=== PATIENT | female | born 1940 | race Caucasian/White ===

== ENCOUNTER 2016-06-19 01:24 | Emergency (ER) | payer MEDICARE, MEDICAID ==
[~2016-06-19] VITALS: Ht 149.9 cm; Wt 55.9 kg
[~2016-06-19 01:24] MED LIST: ACTOS 15MG TAB15 MG PO; ACTOS15 MG PO; ACTOS30 MG PO; ACYCLOVIR400 MG PO; ADVAIR 250/28 DISKU1 IH; ADVAIR 500/28 DISKUS IH; ADVAIR IH; ALBUTEROL0.83 MG/ML IH; ANTIVERT 25MG25 MG PO; ASPIRIN 81M81 MG/TA2 PO; ASPIRIN E.C. 8181 MG PO; ATIVAN 0.50.5 MG/TAB PO; ATROVENT I0.2 MG/1 M IH; BUDESONIDE0.25 MG/2 IH; CARDIZEM CD 18180 MG PO; CELEBREX 1100 MG/CAP PO; CLEOCIN HC150 MG/CAP PO; CRESTOR10 MG PO; CROMOLYN; CYMBALTA 20MG20 MG PO; DUONEB 3 MG/3 ML3 ML IH; FLEXERIL 1010 MG/TAB PO; FLEXERIL5 MG; FLONASE NASAL S16 GM; FORTAMET500 MG PO; GLUCOPHAGE500 MG/TAB PO; HYDROCODONE/APAP; IPRATROPIUM BROM3 M1 IH; LANTUS SQ; LANTUS100 U/ML SQ; LEVAQUIN 750MG750 MG PO; LEVOTHYROXINE0.15 MG PO; LEVOTHYROXINE0.2 MG PO; LIDODERM PATCH TP; LISINOPRIL5 MG PO; LOPRESSOR 225 MG/TAB PO; MEDROL 4MG DOSPA4 MG PO; METFORMIN HCL1000 MG PO; METHOCARBAMOL500 MG PO; NEURONTIN100 MG/CAP PO; NEXIUM40 MG PO; NITROSTAT0.4 MG/TAB SL; NORCO 325 MG-51 TAB PO; NORCO 325 MG-7.1 TAB PO; PERCOCET 325 MG1 TA2 PO; PERCOCET 325 MG1 TA3 PO; PERCR 7.5 PO; PERFOROMIS20 MCG/2 M IH; PHENERGAN 25 TA25 MG PO; PLAVIX 75MG TAB75 MG PO; PRAVACHOL 40MG40 MG PO; PRAVASTATIN20 MG PO; PREDNISONE10 MG PO; PREDNISONE20 MG PO; PRILOSEC 20MG20 MG PO; PROAIR IH; PROVENTIL0.09 MG/A1 IH; PROVENTIL0.09 MG/Ac IH; PULMICORT0.25 MG/2 IH; ROXICODONE15 MG PO; RT SPIRIVA18 MCG IH; SAVELLA12.5 MG PO; SAVELLA25 MG PO; SINGULAIR 110 MG/TAB PO; SINGULAIR10 MG PO; SYNTHROID 0.10.15 MG PO; SYNTHROID0.1 MG/TAB PO; SYNTHROID0.175 MG PO; THEOCHRON PO; ULTRAM 50MG TAB50 MG PO; VENTOLIN0.09 MG IH; XARELTO10 MG PO; ZITHROMAX 250M250 MG PO; ZITHROMAX Z PA250 MG PO; ZOFRAN ODT4 MG PO; ZOLOFT 50MG50 MG PO; ZOLOFT100 MG PO
[2016-06-19 01:26] VITALS: TEMP 98.7
[2016-06-19] MEDS ORDERED: PAXIL 20MG20 MG PO (01:32)
[2016-06-19 02:09] LABS: MEAN CELL VOLUME 76 fl (80.0-100.0); MEAN CORPUSCULAR HGB CONC 32 g/dl (33.0-37.0); MEAN PLATELET VOLUME 10.3 fl (7.4-10.4); PLATELET COUNT 240 K/mm3 (130-400); RED BLOOD COUNT 4.68 M/mm3 (4.10-5.30); REDCELL DISTRIBUTION WIDTH-CV 15.4 % (11.5-14.5); WHITE BLOOD COUNT 9.8 K/mm3 (4.8-10.8)
[2016-06-19 02:13] LABS: ADD PATHOLOGY DIFF REVIEW NO; HEMATOCRIT 35.7 % (37.0-47.0); HEMOGLOBIN 11.5 g/dl (12.5-16.0); MEAN CORPUSCULAR HEMOGLOBIN 25 pg (27.0-31.0)
[2016-06-19 02:21] LABS: ADJUSTED CALCIUM 9.6 mg/dL (8.4-10.2); ALBUMIN 3.9 gm/dL (3.5-5.0); BILIRUBIN,TOTAL 0.6 mg/dL (0.0-1.0); CALCIUM 9.5 mg/dL (8.4-10.2); CREATININE, serum 0.67 mg/dL (0.52-1.25); TOTAL PROTEIN 7.1 gm/dL (6.4-8.2)
[2016-06-19 02:31] LABS: BAND 13 % (0-10); EOSINOPHIL 2 % (0-4); METAMYELOCYTE 2 % (0-0); NEUTROPHILS 42 % (42.0-75.2); PLATELET ESTIMATE NORMAL (NORMAL); TOTAL CELLS COUNTED 100
[2016-06-19] MEDS ORDERED: VOLTAREN 75 DR75 MG PO (03:06)
[2016-06-19] MEDS ORDERED: FLEXERIL 1010 MG/TAB PO (03:06)
[2016-06-19 03:22] VITALS: BP 147/79; PULSE 58
== END 2016-06-19 03:23 | disposition home or self-care (01) ==
LOC: COL.ER 01:24
PROVIDERS: Emergency Medicine
DX: M62.838 Other muscle spasm (principal); M54.2 Cervicalgia; E11.9 Type 2 diabetes mellitus without complications; I10 Essential (primary) hypertension; Z87.891 Personal history of nicotine dependence; J44.9 Chronic obstructive pulmonary disease, unspecified
CPT/HCPCS: J1885; J2360; J2930; J3010; J3360; J7040

== ENCOUNTER 2016-09-22 08:22 | Emergency (ER) | payer MEDICARE ==
[~2016-09-22] VITALS: Ht 149.9 cm; Wt 59.1 kg
[~2016-09-22 08:22] MED LIST changes: +PAXIL 20MG20 MG PO; +VOLTAREN 75 DR75 MG PO
[2016-09-22 08:28] VITALS: BP 127/55; PULSE 88; TEMP 98.4
[2016-09-22] MEDS ORDERED: ZITHROMAX Z PA250 MG PO (09:29)
[2016-09-22] MEDS ORDERED: PREDNISONE20 MG PO (09:29)
== END 2016-09-22 09:50 | disposition home or self-care (01) ==
LOC: COL.ER 08:22
DX: J44.1 Chronic obstructive pulmonary disease with (acute) exacerbation (principal); R06.02 Shortness of breath; I25.10 Atherosclerotic heart disease of native coronary artery without angina pectoris; Z95.5 Presence of coronary angioplasty implant and graft; E11.9 Type 2 diabetes mellitus without complications; Z79.84 Long term (current) use of oral hypoglycemic drugs; Z87.891 Personal history of nicotine dependence
CPT/HCPCS: J7512

== ENCOUNTER → 2017-03-10 | Outpatient (CLI) | payer MEDICARE | LOC: COL.RAD 11:08 | DX: S00.83XA Contusion of other part of head, initial encounter (principal); J32.0 Chronic maxillary sinusitis; J32.2 Chronic ethmoidal sinusitis; J32.3 Chronic sphenoidal sinusitis ==

== ENCOUNTER 2017-05-26 15:39 | Emergency (ER) | payer MEDICARE ==
[~2017-05-26] VITALS: Ht 149.9 cm; Wt 55.5 kg
[2017-05-26 15:48] VITALS: BP 144/82; TEMP 98.7
[2017-05-26 16:37] LABS: HEMOGLOBIN 11.8 g/dl (12.5-16.0); MEAN CELL VOLUME 76 fl (80.0-100.0); MEAN CORPUSCULAR HEMOGLOBIN 25 pg (27.0-31.0); MEAN CORPUSCULAR HGB CONC 33 g/dl (33.0-37.0); MEAN PLATELET VOLUME 10.6 fl (7.4-10.4); PLATELET COUNT 225 K/mm3 (130-400); RED BLOOD COUNT 4.77 M/mm3 (4.10-5.30); REDCELL DISTRIBUTION WIDTH-CV 14.5 % (11.5-14.5)
[2017-05-26 16:46] LABS: BILIRUBIN,TOTAL 0.9 mg/dL (0.0-1.0); CALCIUM 9.8 mg/dL (8.4-10.2); CREATININE, serum 0.73 mg/dL (0.52-1.25); POTASSIUM 4.2 mmol/L (3.4-5.0); TOTAL PROTEIN 6.8 gm/dL (6.4-8.2)
[2017-05-26] MEDS ORDERED: WELLBUTRIN XL300 M1 PO (17:00)
[2017-05-26] MEDS ORDERED: VASCEPA1 GM PO (17:02)
[2017-05-26 17:24] LABS: INFLUENZA A NEGATIVE; INFLUENZA B NEGATIVE
[2017-05-26 17:29] LABS: BAND 4 % (0-10); EOSINOPHIL 1 % (0-4); LYMPHOCYTE 20 % (20.0-51.0); METAMYELOCYTE 4 % (0-0); MYELOCYTE 2 % (0-0); NEUTROPHILS 64 % (42.0-75.2)
[2017-05-26 17:30] LABS: PLATELET ESTIMATE NORMAL (NORMAL)
[2017-05-26 17:35] LABS: BURR CELLS 1+
[2017-05-26] MEDS ORDERED: PREDNISONE20 MG PO (17:35)
[2017-05-26] MEDS ORDERED: LEVAQUIN 5500 MG/TA1 PO (17:35)
[2017-05-26 18:28] VITALS: PULSE 97
[2017-05-30 08:54] LABS: PATHOLOGY DIFF REVIEW OK
== END 2017-05-26 18:30 | disposition home or self-care (01) ==
LOC: COL.ER 15:39
PROVIDERS: Family Medicine
DX: J44.1 Chronic obstructive pulmonary disease with (acute) exacerbation (principal); J18.1 Lobar pneumonia, unspecified organism; Z87.891 Personal history of nicotine dependence; Z79.82 Long term (current) use of aspirin; Z79.84 Long term (current) use of oral hypoglycemic drugs
CPT/HCPCS: J1956; J2930; J7030

== ENCOUNTER 2017-10-24 06:49 | Outpatient (CLI) | payer MEDICARE ==
[~2017-10-24] VITALS: Ht 149.9 cm; Wt 58.6 kg
[~2017-10-24 06:49] MED LIST changes: +LEVAQUIN 5500 MG/TA1 PO; -SYNTHROID0.1 MG/TAB PO; +SYNTHROID0.125 MG/T PO; +VASCEPA1 GM PO; +WELLBUTRIN XL300 M1 PO
[2017-10-24] MEDS ORDERED: D3-5050000 IU PO (07:39)
[2017-10-24] MEDS ORDERED: MOBIC 7.5MG7.5 MG PO (07:40)
[2017-10-24] MEDS ORDERED: NEURONTIN800 MG/TAB PO (07:40)
[2017-10-24] MEDS ORDERED: VASCEPA1 GM PO ×2 (07:41)
[2017-10-24 07:44] VITALS: BP 149/75; PULSE 71; TEMP 97.9
[2017-10-24 09:45] VITALS: BP 135/70; PULSE 76
[2017-10-24 10:00] VITALS: BP 143/56; PULSE 64
[2017-10-24 10:08] LABS: HEMATOCRIT 34.3 % (37.0-47.0); MEAN CELL VOLUME 79 fl (80.0-100.0); MEAN CORPUSCULAR HEMOGLOBIN 25 pg (27.0-31.0); MEAN CORPUSCULAR HGB CONC 32 g/dl (33.0-37.0); MEAN PLATELET VOLUME 10.5 fl (7.4-10.4); PLATELET COUNT 138 K/mm3 (130-400); RED BLOOD COUNT 4.36 M/mm3 (4.10-5.30); REDCELL DISTRIBUTION WIDTH-CV 14.8 % (11.5-14.5)
[2017-10-24 10:22] VITALS: BP 116/71; PULSE 67
[2017-10-24 10:48] VITALS: BP 115/53; PULSE 69
[2017-10-24 11:55] LABS: BAND 16 % (0-10); EOSINOPHIL 1 % (0-4); LYMPHOCYTE 43 % (20.0-51.0); METAMYELOCYTE 3 % (0-0); MICROCYTOSIS 1+; MYELOCYTE 1 % (0-0); NEUTROPHILS 32 % (42.0-75.2); PLATELET ESTIMATE NORMAL (NORMAL)
== END 2017-10-24 10:36 | disposition home or self-care (01) ==
LOC: SDCO 06:49
PROVIDERS: Pathology Anatomic Pathology & Clinical Pathology
DX: D72.829 Elevated white blood cell count, unspecified (principal); D69.6 Thrombocytopenia, unspecified; I25.10 Atherosclerotic heart disease of native coronary artery without angina pectoris; I25.2 Old myocardial infarction; J44.9 Chronic obstructive pulmonary disease, unspecified; G47.33 Obstructive sleep apnea (adult) (pediatric); M19.90 Unspecified osteoarthritis, unspecified site; F32.9 Major depressive disorder, single episode, unspecified; F41.9 Anxiety disorder, unspecified; G89.29 Other chronic pain; M54.5 Low back pain; E03.9 Hypothyroidism, unspecified; E11.9 Type 2 diabetes mellitus without complications; Z90.710 Acquired absence of both cervix and uterus; Z85.41 Personal history of malignant neoplasm of cervix uteri
CPT/HCPCS: J2250; J2704; J3010; J7030

== ENCOUNTER 2018-01-15 06:54 | Outpatient (CLI) | payer MEDICARE, MEDICAID ==
[~2018-01-15] VITALS: Ht 149.9 cm; Wt 55.5 kg
[~2018-01-15 06:54] MED LIST changes: +D3-5050000 IU PO; +MOBIC 7.5MG7.5 MG PO; +NEURONTIN800 MG/TAB PO
[2018-01-15] MEDS ORDERED: JANUVIA 100MG100 MG PO (08:37)
[2018-01-15 08:51] VITALS: BP 136/49; PULSE 69; TEMP 98.7
[2018-01-15 09:40] LABS: HEMOGLOBIN 10.8 g/dl (12.5-16.0); MEAN CELL VOLUME 79 fl (80.0-100.0); MEAN CORPUSCULAR HEMOGLOBIN 25 pg (27.0-31.0); MEAN CORPUSCULAR HGB CONC 32 g/dl (33.0-37.0); MEAN PLATELET VOLUME 12.2 fl (7.4-10.4); PLATELET COUNT 105 K/mm3 (130-400); RED BLOOD COUNT 4.27 M/mm3 (4.10-5.30); REDCELL DISTRIBUTION WIDTH-CV 15.6 % (11.5-14.5)
[2018-01-15 09:53] LABS: HEMATOCRIT 33.5 % (37.0-47.0)
[2018-01-15 10:00] VITALS: BP 109/49; PULSE 78
[2018-01-15 10:15] VITALS: BP 116/48; PULSE 74
[2018-01-15 10:45] VITALS: BP 108/59; PULSE 78; TEMP 98.4
[2018-01-15 10:53] VITALS: BP 95/86; PULSE 83
[2018-01-15 11:36] LABS: BAND 30 % (0-10); EOSINOPHIL 1 % (0-4); METAMYELOCYTE 3 % (0-0); MYELOCYTE 2 % (0-0); NEUTROPHILS 33 % (42.0-75.2); NUCLEATED RED BLOOD CELL 1 (0-6)
[2018-01-15 11:37] LABS: ANISOCYTOSIS 1+; HYPOCHROMIA 1+; MICROCYTOSIS 1+; PLATELET ESTIMATE DECREASED (NORMAL)
[2018-01-15 13:38] LABS: LYMPHOCYTE 24 % (20.0-51.0)
== END 2018-01-15 11:24 | disposition home or self-care (01) ==
LOC: EUO 06:54 → SDCO 09:00 → EUO 11:24
PROVIDERS: Pathology Anatomic Pathology & Clinical Pathology
DX: D72.829 Elevated white blood cell count, unspecified (principal); D69.6 Thrombocytopenia, unspecified; Z85.41 Personal history of malignant neoplasm of cervix uteri; Z92.21 Personal history of antineoplastic chemotherapy
CPT/HCPCS: J2704; J3010; J7030

== ENCOUNTER → 2018-02-02 | Outpatient (CLI) | payer MEDICARE, MEDICAID ==
[~2018-02-02] MED LIST changes: +JANUVIA 100MG100 MG PO
== END ==
LOC: MC.RAD 13:25
DX: Z12.31 Encounter for screening mammogram for malignant neoplasm of breast (principal)

== ENCOUNTER → 2018-02-09 | Outpatient (CLI) | payer MEDICARE, MEDICAID | LOC: MC.RAD 08:21 | DX: N63.20 Unspecified lump in the left breast, unspecified quadrant (principal) | CPT/HCPCS: G0279 ==

== ENCOUNTER 2018-02-13 08:07 | Day surgery (SDC) | payer MEDICARE, MEDICAID ==
[~2018-02-13] VITALS: Ht 149.9 cm; Wt 53.9 kg
[2018-02-13] MEDS ORDERED: OSCAL 500 TAB500 MG PO (08:40)
[2018-02-13] MEDS ORDERED: HYDROXYURE500 MG/CAP PO (08:40)
[2018-02-13] MEDS ORDERED: VITAMIN D PO (08:40)
[2018-02-13 08:41] VITALS: BP 149/62; PULSE 78; TEMP 98.6
[2018-02-13 11:18] VITALS: BP 112/44; PULSE 67; TEMP 96.9
[2018-02-13 11:30] VITALS: BP 104/50; PULSE 70
[2018-02-13 11:45] VITALS: BP 119/49; PULSE 62
== END 2018-02-13 12:10 | disposition home or self-care (01) ==
LOC: SDCO 08:07
DX: C92.00 Acute myeloblastic leukemia, not having achieved remission (principal); Z79.84 Long term (current) use of oral hypoglycemic drugs; E11.9 Type 2 diabetes mellitus without complications; G47.33 Obstructive sleep apnea (adult) (pediatric); J44.9 Chronic obstructive pulmonary disease, unspecified; I25.10 Atherosclerotic heart disease of native coronary artery without angina pectoris; I25.2 Old myocardial infarction; F32.9 Major depressive disorder, single episode, unspecified; F41.9 Anxiety disorder, unspecified; G89.29 Other chronic pain; E03.9 Hypothyroidism, unspecified; D69.6 Thrombocytopenia, unspecified; Z95.5 Presence of coronary angioplasty implant and graft; Z88.2 Allergy status to sulfonamides; Z88.8 Allergy status to other drugs, medicaments and biological substances; Z96.651 Presence of right artificial knee joint; Z85.42 Personal history of malignant neoplasm of other parts of uterus; Z85.41 Personal history of malignant neoplasm of cervix uteri; Z82.3 Family history of stroke; Z80.3 Family history of malignant neoplasm of breast; Z80.51 Family history of malignant neoplasm of kidney; Z80.8 Family history of malignant neoplasm of other organs or systems; Z82.49 Family history of ischemic heart disease and other diseases of the circulatory system
CPT/HCPCS: C1788; J0690; J1100; J1644; J1885; J2250; J2405; J3010; J7120

== ENCOUNTER → 2018-07-30 | Outpatient (CLI) | payer MEDICARE ==
[~2018-07-30] MED LIST changes: +BREO IH; +HYDROXYURE500 MG/CAP PO; +IMODIUM 2MG CAPS2 MG PO; +MASON NATURAL2000 IU PO; +OSCAL 500 TAB500 MG PO; +VITAMIN D PO
== END ==
LOC: ZCOL.LAB 16:40
DX: H66.92 Otitis media, unspecified, left ear (principal)

== ENCOUNTER → 2018-09-19 | Outpatient (CLI) | payer MEDICARE | LOC: COL.LAB 14:52 | DX: R06.02 Shortness of breath (principal); R60.0 Localized edema ==

== ENCOUNTER → 2018-11-21 | Outpatient (CLI) | payer MEDICARE | LOC: MHCPAIN 14:47 | DX: G89.29 Other chronic pain (principal); M47.814 Spondylosis without myelopathy or radiculopathy, thoracic region; M79.18 Myalgia, other site | CPT/HCPCS: G0463 ==

== ENCOUNTER 2019-03-01 20:25 | Emergency (ER) | payer MEDICARE ==
[~2019-03-01] VITALS: Ht 149.9 cm; Wt 55.9 kg
[2019-03-01 20:31] VITALS: TEMP 98
[2019-03-01 21:08] LABS: HEMOGLOBIN 11.7 g/dl (12.5-16.0); MEAN CELL VOLUME 79 fl (80.0-100.0); MEAN CORPUSCULAR HEMOGLOBIN 25 pg (27.0-31.0); MEAN CORPUSCULAR HGB CONC 32 g/dl (33.0-37.0); MEAN PLATELET VOLUME 12.1 fl (7.4-10.4); PLATELET COUNT 154 K/mm3 (130-400); RED BLOOD COUNT 4.68 M/mm3 (4.10-5.30); REDCELL DISTRIBUTION WIDTH-CV 16.2 % (11.5-14.5)
[2019-03-01 21:20] LABS: HEMATOCRIT 36.8 % (37.0-47.0); INR 3.6 (0.8-3.0); PROTHROMBIN TIME 43.6 SECONDS (9.7-12.8)
[2019-03-01 21:32] LABS: ALANINE AMINOTRANSFERASE 9 U/L (9-52); ALBUMIN 3.4 gm/dL (3.5-5.0); ALKALINE PHOSPHATASE 67 U/L (50-136); ANION GAP 6 mmol/L (7-16); AST,SGOT 15 U/L (15-37); BILIRUBIN,TOTAL 0.3 mg/dL (0.0-1.0); BLOOD UREA NITROGEN 13 mg/dL (7-17); CALCIUM 9.8 mg/dL (8.4-10.2); CARBON DIOXIDE 26 mmol/L (22-30); CHLORIDE 105 mmol/L (98-107); CREATININE, serum 0.55 (0.52-1.25); GLUCOSE 162 mg/dL (74-106); LIPASE 14 U/L (23-300); POTASSIUM 3.7 mmol/L (3.4-5.0); SODIUM 137 mmol/L (137-145); TOTAL PROTEIN 5.7 gm/dL (6.4-8.2)
[2019-03-01 21:47] LABS: TROPONIN-I < 0.012 ng/mL (0.000-0.035)
[2019-03-01 21:52] LABS: BAND 4 % (0-10); EOSINOPHIL 1 % (0-4); LYMPHOCYTE 24 % (20.0-51.0); METAMYELOCYTE 1 % (0-0); MYELOCYTE 4 % (0-0); NEUTROPHILS 58 % (42.0-75.2)
[2019-03-01 21:53] LABS: MICROCYTOSIS 2+; PLATELET ESTIMATE NORMAL (NORMAL)
[2019-03-01 21:54] LABS: ANISOCYTOSIS 1+
[2019-03-02 00:37] VITALS: BP 140/61; PULSE 73
[2019-03-03 10:26] LABS: PATHOLOGY DIFF REVIEW OK +
== END 2019-03-02 00:37 | disposition home or self-care (01) ==
LOC: COL.ER 20:25
PROVIDERS: Emergency Medicine
DX: J90 Pleural effusion, not elsewhere classified (principal); Z79.82 Long term (current) use of aspirin; Z79.84 Long term (current) use of oral hypoglycemic drugs; Z79.51 Long term (current) use of inhaled steroids
CPT/HCPCS: J1644; J1885; J2405; J7030; Q9967

== ENCOUNTER 2019-04-22 06:41 | Day surgery (SDC) | payer MEDICARE ==
[~2019-04-22] VITALS: Ht 149.9 cm; Wt 53.4 kg
[2019-04-22 08:11] VITALS: BP 129/91; PULSE 72; TEMP 98.5
--- NOTE | 2019-04-22 08:53 | NUR ---
Pt to procedure,report to Arti Henry.
--- NOTE | 2019-04-22 09:28 | NUR ---
Report from Arti eHnry.Will await pts arrival.
[2019-04-22 09:36] VITALS: BP 114/51; PULSE 72
--- NOTE | 2019-04-22 09:36 | NUR ---
Pt returned from procedure,report from Arti Henry.
[2019-04-22 09:45] VITALS: BP 113/46; PULSE 77
[2019-04-22 09:49] LABS: MEAN CELL VOLUME 79 fl (80.0-100.0); MEAN CORPUSCULAR HEMOGLOBIN 25 pg (27.0-31.0); MEAN CORPUSCULAR HGB CONC 31 g/dl (33.0-37.0); MEAN PLATELET VOLUME 10.2 fl (7.4-10.4); PLATELET COUNT 105 K/mm3 (130-400); RED BLOOD COUNT 4.42 M/mm3 (4.10-5.30); REDCELL DISTRIBUTION WIDTH-CV 16.9 % (11.5-14.5)
[2019-04-22 10:20] VITALS: BP 120/60; PULSE 68
--- NOTE | 2019-04-22 10:32 | NUR ---
Discharge instructions given to pt.pt verbalizes understanding.
--- NOTE | 2019-04-22 10:43 | NUR ---
PT ESCORTED OUT VIA WHEELCHAIR BY THIS NURSE.
[2019-04-22 11:32] LABS: BAND 4 % (0-10); BASOPHIL 1 % (0-2); LYMPHOCYTE 29 % (20.0-51.0); METAMYELOCYTE 4 % (0-0); MYELOCYTE 1 % (0-0); NEUTROPHILS 46 % (42.0-75.2); TARGET CELLS 1+
[2019-04-22 11:33] LABS: ANISOCYTOSIS 1+; PLATELET ESTIMATE DECREASED (NORMAL); TEAR DROP CELLS 1+
[2019-04-22 11:58] VITALS: BP 122/64; PULSE 70
== END 2019-04-22 10:43 | disposition home or self-care (01) ==
LOC: SDCO 06:41 → EDSTATUS 07:00 → SDCO 09:00
PROVIDERS: Pathology Anatomic Pathology & Clinical Pathology
DX: C95.90 Leukemia, unspecified not having achieved remission (principal); D46.9 Myelodysplastic syndrome, unspecified; E11.9 Type 2 diabetes mellitus without complications; M19.90 Unspecified osteoarthritis, unspecified site; E03.9 Hypothyroidism, unspecified; J45.909 Unspecified asthma, uncomplicated; D69.6 Thrombocytopenia, unspecified; Z80.3 Family history of malignant neoplasm of breast; Z80.9 Family history of malignant neoplasm, unspecified; Z79.82 Long term (current) use of aspirin; Z88.0 Allergy status to penicillin; Z88.8 Allergy status to other drugs, medicaments and biological substances; Z88.2 Allergy status to sulfonamides; Z88.7 Allergy status to serum and vaccine; Z88.1 Allergy status to other antibiotic agents; Z91.041 Radiographic dye allergy status
CPT/HCPCS: J2704; J3010

== ENCOUNTER 2019-04-25 09:48 | Emergency (ER) | payer MEDICARE ==
[~2019-04-25] VITALS: Ht 149.9 cm; Wt 52.3 kg
[2019-04-25 09:58] VITALS: TEMP 97.8
[2019-04-25 10:45] LABS: COLLECTION METHOD CLEAN CATCH
[2019-04-25 10:48] LABS: HEMATOCRIT 38.6 % (37.0-47.0); MEAN CELL VOLUME 79 fl (80.0-100.0); MEAN CORPUSCULAR HEMOGLOBIN 25 pg (27.0-31.0); MEAN CORPUSCULAR HGB CONC 31 g/dl (33.0-37.0); PLATELET COUNT 142 K/mm3 (130-400); RED BLOOD COUNT 4.86 M/mm3 (4.10-5.30)
[2019-04-25 11:00] LABS: AMORPHOUS CRYSTAL Present /uL; MUCOUS Present /lpf; PH 5 (5-8); URINE APPEARANCE Turbid; URINE BACTERIA Many /hpf; URINE BILIRUBIN Negative (NEGATIVE); URINE BLOOD 2+ (NEGATIVE); URINE COLOR Amber; URINE GLUCOSE Negative (NEGATIVE); URINE KETONE Trace (NEGATIVE); URINE LEUKOCYTE ESTERASE Negative (NEGATIVE); URINE NITRATE Negative (NEGATIVE); URINE PROTEIN(semi-quant) 1+ (NEGATIVE); URINE RBC None Seen /hpf; URINE UROBILINOGEN Negative (NEGATIVE)
[2019-04-25 11:02] LABS: ALANINE AMINOTRANSFERASE 15 U/L (9-52); ALBUMIN 3.4 gm/dL (3.5-5.0); ALKALINE PHOSPHATASE 70 U/L (50-136); ANION GAP 6 mmol/L (7-16); AST,SGOT 11 U/L (15-37); BILIRUBIN,TOTAL 0.4 mg/dL (0.0-1.0); BLOOD UREA NITROGEN 10 mg/dL (7-17); C-REACTIVE PROTEIN 0.7 mg/dL (0.0-0.9); CALCIUM 9.1 mg/dL (8.4-10.2); CARBON DIOXIDE 26 mmol/L (22-30); CHLORIDE 106 mmol/L (98-107); CREATININE, serum 0.59 (0.52-1.25); GLUCOSE 87 mg/dL (74-106); LIPASE < 10 U/L (23-300); POTASSIUM 3.6 mmol/L (3.4-5.0); SODIUM 139 mmol/L (137-145); TOTAL PROTEIN 5.7 gm/dL (6.4-8.2)
[2019-04-25 11:08] LABS: ANISOCYTOSIS 1+; BAND 11 % (0-10); EOSINOPHIL 2 % (0-4); LYMPHOCYTE 29 % (20.0-51.0); METAMYELOCYTE 1 % (0-0); NEUTROPHILS 42 % (42.0-75.2); PLATELET ESTIMATE NORMAL (NORMAL)
[2019-04-25] MEDS ORDERED: PREDNISONE20 MG PO (14:28)
[2019-04-25] MEDS ORDERED: MACROBID 1100 MG/CAP PO (14:30)
[2019-04-25 15:15] VITALS: BP 103/45; PULSE 69
== END 2019-04-25 15:27 | disposition home or self-care (01) ==
LOC: COL.ER 09:48
PROVIDERS: Emergency Medicine
DX: R82.71 Bacteriuria (principal); R10.32 Left lower quadrant pain; I25.10 Atherosclerotic heart disease of native coronary artery without angina pectoris; E11.9 Type 2 diabetes mellitus without complications; E78.5 Hyperlipidemia, unspecified; J44.9 Chronic obstructive pulmonary disease, unspecified; Z87.891 Personal history of nicotine dependence; Z79.82 Long term (current) use of aspirin; Z79.51 Long term (current) use of inhaled steroids; Z79.84 Long term (current) use of oral hypoglycemic drugs
CPT/HCPCS: J1170; J2270; J2405; J7030; Q9967

== ENCOUNTER → 2019-11-18 | Outpatient (CLI) | payer MEDICARE ==
[~2019-11-18] MED LIST changes: +CALCIUM CARBON650 M2 PO; +MACROBID 1100 MG/CAP PO
== END ==
LOC: COL.RAD 08:00
DX: N20.0 Calculus of kidney (principal); I70.8 Atherosclerosis of other arteries; K86.89 Other specified diseases of pancreas; K57.30 Diverticulosis of large intestine without perforation or abscess without bleeding; J91.8 Pleural effusion in other conditions classified elsewhere; J98.11 Atelectasis
CPT/HCPCS: J1644; Q9967

== ENCOUNTER 2020-03-09 06:50 | Outpatient (CLI) | payer MEDICARE ==
[~2020-03-09] VITALS: Ht 149.9 cm; Wt 48.6 kg
[2020-03-09 07:28] VITALS: BP 153/44; PULSE 66; TEMP 98.5
[2020-03-09 08:40] VITALS: BP 125/58; PULSE 60; TEMP 98.5
--- NOTE | 2020-03-09 09:45 | NUR ---
Back from Bone Marrow Biopsy, ALert and oriented, denies pain and needs at this time. Lab in to draw CBC. VSS
[2020-03-09 09:55] VITALS: BP 125/44; PULSE 66; TEMP 98.5
[2020-03-09 10:04] LABS: MEAN CELL VOLUME 84 fl (80.0-100.0); MEAN CORPUSCULAR HGB CONC 31 g/dl (33.0-37.0); MEAN PLATELET VOLUME 13.8 fl (7.4-10.4); PLATELET COUNT 210 K/mm3 (130-400); RED BLOOD COUNT 3.57 M/mm3 (4.10-5.30); REDCELL DISTRIBUTION WIDTH-CV 16.6 % (11.5-14.5)
[2020-03-09 10:15] VITALS: BP 128/54; PULSE 62; TEMP 98.5
[2020-03-09 10:18] LABS: HEMATOCRIT 29.9 % (37.0-47.0); HEMOGLOBIN 9.3 g/dl (12.5-16.0); MEAN CORPUSCULAR HEMOGLOBIN 26 pg (27.0-31.0)
[2020-03-09 10:30] VITALS: BP 124/49; PULSE 86; TEMP 98.5
[2020-03-09 10:40] VITALS: BP 121/50; PULSE 64; TEMP 98.5
[2020-03-09 10:50] LABS: BAND 37 % (0-10); EOSINOPHIL 1 % (0-4); LYMPHOCYTE 16 % (20.0-51.0); METAMYELOCYTE 17 % (0-0); MYELOCYTE 8 % (0-0); NEUTROPHILS 15 % (42.0-75.2); NUCLEATED RED BLOOD CELL 2 (0-6)
--- NOTE | 2020-03-09 10:50 | NUR ---
Port left accessed, pt to have chemo at 1400. Discharge instructions given. Transferred to private car by naveen
[2020-03-09 10:51] LABS: PLATELET ESTIMATE NORMAL (NORMAL)
[2020-03-09 10:52] LABS: ANISOCYTOSIS 1+; HYPOCHROMIA 1+
== END 2020-03-09 10:50 | disposition home or self-care (01) ==
LOC: SDCO 06:50
PROVIDERS: Pathology Anatomic Pathology & Clinical Pathology
DX: C92.21 Atypical chronic myeloid leukemia, BCR/ABL-negative, in remission (principal); I25.10 Atherosclerotic heart disease of native coronary artery without angina pectoris; I25.2 Old myocardial infarction; E78.5 Hyperlipidemia, unspecified; J44.9 Chronic obstructive pulmonary disease, unspecified; G47.33 Obstructive sleep apnea (adult) (pediatric); G89.29 Other chronic pain; E03.9 Hypothyroidism, unspecified; F41.9 Anxiety disorder, unspecified; F32.9 Major depressive disorder, single episode, unspecified; E11.9 Type 2 diabetes mellitus without complications; Z95.5 Presence of coronary angioplasty implant and graft; Z99.81 Dependence on supplemental oxygen; Z87.891 Personal history of nicotine dependence; Z88.0 Allergy status to penicillin; Z88.2 Allergy status to sulfonamides; Z88.8 Allergy status to other drugs, medicaments and biological substances; Z88.1 Allergy status to other antibiotic agents; Z79.82 Long term (current) use of aspirin
CPT/HCPCS: J2704

== ENCOUNTER 2020-06-22 09:32 | Emergency (ER) | payer MEDICARE ==
[~2020-06-22] VITALS: Ht 149.9 cm; Wt 47.7 kg
[2020-06-22 09:42] VITALS: TEMP 98.3
[2020-06-22 10:20] LABS: MEAN CELL VOLUME 88 fl (80.0-100.0); MEAN CORPUSCULAR HGB CONC 31 g/dl (33.0-37.0); MEAN PLATELET VOLUME 12.6 fl (7.4-10.4); PLATELET COUNT 262 K/mm3 (130-400); RED BLOOD COUNT 3.47 M/mm3 (4.10-5.30); REDCELL DISTRIBUTION WIDTH-CV 16.9 % (11.5-14.5)
[2020-06-22 10:29] LABS: INR 1.4 (0.8-3.0); PROTHROMBIN TIME 15.4 SECONDS (9.7-12.8)
[2020-06-22 10:30] LABS: ALBUMIN 3.1 gm/dL (3.5-5.0); ALKALINE PHOSPHATASE 49 U/L (50-136); ANION GAP 4 mmol/L (7-16); AST,SGOT 10 U/L (15-37); BILIRUBIN,TOTAL 0.7 mg/dL (0.0-1.0); BLOOD UREA NITROGEN 15 mg/dL (7-17); CALCIUM 8.7 mg/dL (8.4-10.2); CARBON DIOXIDE 28 mmol/L (22-30); CHLORIDE 104 mmol/L (98-107); CREATININE, serum 0.64 (0.52-1.25); GLUCOSE 106 mg/dL (74-106); MAGNESIUM 2.1 mg/dL (1.6-2.3); POTASSIUM 4.2 mmol/L (3.4-5.0); SODIUM 136 mmol/L (137-145); TOTAL PROTEIN 5.3 gm/dL (6.4-8.2)
[2020-06-22 10:31] LABS: ALANINE AMINOTRANSFERASE < 4 U/L (4-34)
[2020-06-22 10:44] LABS: TROPONIN-I < 0.012 ng/mL (0.000-0.035)
[2020-06-22 10:52] LABS: HEMATOCRIT 30.5 % (37.0-47.0); HEMOGLOBIN 9.3 g/dl (12.5-16.0); MEAN CORPUSCULAR HEMOGLOBIN 27 pg (27.0-31.0)
[2020-06-22 11:26] LABS: ANISOCYTOSIS 1+; BAND 10 % (0-10); BASOPHIL 1 % (0-2); EOSINOPHIL 6 % (0-4); LYMPHOCYTE 19 % (20.0-51.0); METAMYELOCYTE 3 % (0-0); NEUTROPHILS 54 % (42.0-75.2); OVALOCYTES 1+; TEAR DROP CELLS 1+
[2020-06-22 11:28] LABS: PLATELET ESTIMATE NORMAL (NORMAL)
[2020-06-22 14:10] VITALS: BP 128/46; PULSE 68
[2020-06-22] MEDS ORDERED: MOBIC 7.5MG7.5 MG PO (14:49)
[2020-06-22] MEDS ORDERED: ATIVAN 0.50.5 MG/TAB PO (14:49)
== END 2020-06-22 15:12 | disposition home or self-care (01) ==
LOC: COL.ER 09:32
PROVIDERS: Emergency Medicine
DX: D64.9 Anemia, unspecified (principal); C92.10 Chronic myeloid leukemia, BCR/ABL-positive, not having achieved remission; I25.10 Atherosclerotic heart disease of native coronary artery without angina pectoris; E78.5 Hyperlipidemia, unspecified; Z88.1 Allergy status to other antibiotic agents; Z88.0 Allergy status to penicillin; Z88.2 Allergy status to sulfonamides; Z79.82 Long term (current) use of aspirin
CPT/HCPCS: J2270; J2405; Q9967

== ENCOUNTER → 2020-12-11 | Outpatient (CLI) | payer MEDICARE | LOC: COL.RAD 08:07 | DX: D46.A Refractory cytopenia with multilineage dysplasia (principal); D46.9 Myelodysplastic syndrome, unspecified; R91.1 Solitary pulmonary nodule; R16.1 Splenomegaly, not elsewhere classified | CPT/HCPCS: Q9967 ==

== ENCOUNTER 2021-04-05 16:41 | Emergency (ER) | payer MEDICARE | END 2021-04-05 17:33 | disposition left against medical advice (07) | LOC: COL.ER 16:41 | DX: T14.90XA Injury, unspecified, initial encounter (principal); X58.XXXA Exposure to other specified factors, initial encounter ==

== ENCOUNTER 2021-04-06 08:56 | Emergency (ER) | payer MEDICARE ==
[~2021-04-06] VITALS: Ht 149.9 cm; Wt 45.5 kg
[2021-04-06 09:02] VITALS: TEMP 97.7
[2021-04-06 09:28] LABS: HEMOGLOBIN 10.9 g/dl (12.5-16.0); MEAN CELL VOLUME 85 fl (80.0-100.0); MEAN CORPUSCULAR HEMOGLOBIN 27 pg (27.0-31.0); MEAN CORPUSCULAR HGB CONC 32 g/dl (33.0-37.0); MEAN PLATELET VOLUME 13.1 fl (7.4-10.4); PLATELET COUNT 287 K/mm3 (130-400); RED BLOOD COUNT 4.04 M/mm3 (4.10-5.30)
[2021-04-06 09:29] LABS: HEMATOCRIT 34.2 % (37.0-47.0)
[2021-04-06 09:40] LABS: ALBUMIN 3.6 gm/dL (3.4-4.8); ALKALINE PHOSPHATASE 62 U/L (40-150); ANION GAP 8 mmol/L (7-16); AST,SGOT 14 U/L (5-34); BILIRUBIN,TOTAL 1.4 mg/dL (0.2-1.2); BLOOD UREA NITROGEN 9 mg/dL (10-20); CALCIUM 9.1 mg/dL (8.4-10.2); CARBON DIOXIDE 23 mmol/L (23-31); CHLORIDE 107 mmol/L (98-107); CREATININE, serum 0.65 mg/dL (0.57-1.11); GLUCOSE 81 mg/dL (70-99); POTASSIUM 4.4 mmol/L (3.5-4.5); SODIUM 138 mmol/L (136-145); TOTAL PROTEIN 6.1 gm/dL (6.2-8.1)
[2021-04-06 09:41] LABS: ALANINE AMINOTRANSFERASE < 6 U/L (0-55)
[2021-04-06 09:52] LABS: ANISOCYTOSIS 1+; EOSINOPHIL 5 % (0-4); LYMPHOCYTE 33 % (20.0-51.0); MYELOCYTE 4 % (0-0); NEUTROPHILS 52 % (42.0-75.2)
[2021-04-06 09:53] LABS: HYPOCHROMIA 2+; PLATELET ESTIMATE NORMAL (NORMAL); SCHISTOCYTES 1+
[2021-04-06 10:22] VITALS: BP 148/72; PULSE 59
[2021-04-07 07:50] LABS: PATHOLOGY DIFF REVIEW OK +
== END 2021-04-06 10:36 | disposition home or self-care (01) ==
LOC: COL.ER 08:56
PROVIDERS: Student in an Organized Health Care Education/Training Program
DX: S09.90XA Unspecified injury of head, initial encounter (principal); C95.90 Leukemia, unspecified not having achieved remission; D64.9 Anemia, unspecified; W18.30XA Fall on same level, unspecified, initial encounter

== ENCOUNTER 2021-08-12 07:56 | Emergency (ER) | payer MEDICARE ==
[~2021-08-12] VITALS: Ht 149.9 cm; Wt 47.7 kg
[~2021-08-12 07:56] MED LIST changes: -SYNTHROID0.125 MG/T PO; +SYNTHROID0.2 MG/TAB PO
[2021-08-12 08:08] VITALS: TEMP 99
[2021-08-12 08:56] LABS: MEAN CELL VOLUME 84 fl (80.0-100.0); MEAN CORPUSCULAR HGB CONC 32 g/dl (33.0-37.0); MEAN PLATELET VOLUME 13.5 fl (7.4-10.4); PLATELET COUNT 187 K/mm3 (130-400); RED BLOOD COUNT 3.08 M/mm3 (4.10-5.30); REDCELL DISTRIBUTION WIDTH-CV 15.7 % (11.5-14.5)
[2021-08-12 08:58] LABS: HEMATOCRIT 25.9 % (37.0-47.0); HEMOGLOBIN 8.4 g/dl (12.5-16.0); MEAN CORPUSCULAR HEMOGLOBIN 27 pg (27-31)
[2021-08-12 09:05] LABS: STREP SCREEN NEGATIVE
[2021-08-12 09:09] LABS: ALKALINE PHOSPHATASE 46 U/L (40-150); ANION GAP 7 mmol/L (7-16); AST,SGOT 7 U/L (5-34); BILIRUBIN,TOTAL 0.7 mg/dL (0.2-1.2); BLOOD UREA NITROGEN 11 mg/dL (10-20); CALCIUM 7.6 mg/dL (8.4-10.2); CARBON DIOXIDE 22 mmol/L (23-31); CHLORIDE 102 mmol/L (98-107); CREATININE, serum 0.57 mg/dL (0.57-1.11); GLUCOSE 84 mg/dL (70-99); POTASSIUM 3.6 mmol/L (3.5-4.5); SODIUM 131 mmol/L (136-145); TOTAL PROTEIN 4.8 gm/dL (6.2-8.1)
[2021-08-12 09:10] LABS: ALANINE AMINOTRANSFERASE < 6 U/L (0-55)
[2021-08-12 09:12] LABS: BAND 5 % (0-10); EOSINOPHIL 2 % (0-4); LYMPHOCYTE 18 % (20.0-51.0); METAMYELOCYTE 1 % (0-0); NEUTROPHILS 68 % (42.0-75.2); OVALOCYTES 1+
[2021-08-12 09:13] LABS: PLATELET ESTIMATE NORMAL (NORMAL); TEAR DROP CELLS 1+
[2021-08-12 10:15] LABS: COLLECTION METHOD CLEAN CATCH
[2021-08-12 10:30] LABS: MUCOUS Present (NOT PRESENT); PH 5 (5-8); SQUAMOUS EPITHELIAL 0-2 /hpf (0-10); URINE APPEARANCE Hazy (CLEAR/HAZY); URINE BACTERIA None Seen /hpf (NONE SEEN); URINE BILIRUBIN Negative (NEGATIVE); URINE BLOOD 1+ (NEGATIVE); URINE COLOR Yellow (YELLOW); URINE GLUCOSE Negative (NEGATIVE); URINE KETONE Negative (NEGATIVE); URINE LEUKOCYTE ESTERASE Negative (NEGATIVE); URINE NITRATE Negative (NEGATIVE); URINE PROTEIN(semi-quant) Negative (NEGATIVE); URINE UROBILINOGEN Negative (NEGATIVE)
[2021-08-12] MEDS ORDERED: DOXYCYCLINE 10100 MG PO (10:39)
[2021-08-12 11:00] VITALS: BP 136/51; PULSE 65
== END 2021-08-12 11:09 | disposition home or self-care (01) ==
LOC: COL.ER 07:56
PROVIDERS: Emergency Medicine
DX: J02.9 Acute pharyngitis, unspecified (principal); C95.90 Leukemia, unspecified not having achieved remission; Z90.09 Acquired absence of other part of head and neck; Z20.822 Contact with and (suspected) exposure to COVID-19
CPT/HCPCS: J7030

== ENCOUNTER 2021-08-16 16:53 | Inpatient (IN) | payer MEDICARE ==
[~2021-08-16] VITALS: Ht 149.9 cm; Wt 45.5 kg
[~2021-08-16 16:53] MED LIST changes: +DOXYCYCLINE 10100 MG PO
[2021-08-16 18:12] LABS: MEAN CELL VOLUME 86 fl (80.0-100.0); MEAN CORPUSCULAR HGB CONC 32 g/dl (33.0-37.0); MEAN PLATELET VOLUME 11.9 fl (7.4-10.4); PLATELET COUNT 224 K/mm3 (130-400); RED BLOOD COUNT 3.46 M/mm3 (4.10-5.30); REDCELL DISTRIBUTION WIDTH-CV 15.9 % (11.5-14.5)
[2021-08-16 18:27] LABS: ALBUMIN 3.2 gm/dL (3.4-4.8); BILIRUBIN,TOTAL 0.8 mg/dL (0.2-1.2); C-REACTIVE PROTEIN 1.39 mg/dL (0.00-0.50); CALCIUM 8.4 mg/dL (8.4-10.2); CREATININE, serum 0.66 mg/dL (0.57-1.11); TOTAL PROTEIN 5.1 gm/dL (6.2-8.1)
[2021-08-16 18:29] LABS: HEMATOCRIT 29.7 % (37.0-47.0); HEMOGLOBIN 9.4 g/dl (12.5-16.0); MEAN CORPUSCULAR HEMOGLOBIN 27 pg (27-31)
[2021-08-16 19:03] LABS: COLLECTION METHOD CLEAN CATCH
[2021-08-16 19:09] LABS: BASOPHIL 7 % (0-2); EOSINOPHIL 1 % (0-4); LYMPHOCYTE 36 % (20.0-51.0); MYELOCYTE 1 % (0-0); NEUTROPHILS 35 % (42.0-75.2); PLATELET ESTIMATE NORMAL (NORMAL)
[2021-08-16 19:10] LABS: HYPOCHROMIA 2+
[2021-08-16 19:17] LABS: MUCOUS Present (NOT PRESENT); PH 5 (5-8); SQUAMOUS EPITHELIAL None Seen /hpf (0-10); URINE APPEARANCE Clear (CLEAR/HAZY); URINE BACTERIA None Seen /hpf (NONE SEEN); URINE BILIRUBIN Negative (NEGATIVE); URINE BLOOD 2+ (NEGATIVE); URINE COLOR Yellow (YELLOW); URINE GLUCOSE Negative (NEGATIVE); URINE KETONE Negative (NEGATIVE); URINE LEUKOCYTE ESTERASE Negative (NEGATIVE); URINE NITRATE Negative (NEGATIVE); URINE PROTEIN(semi-quant) Negative (NEGATIVE); URINE RBC 0-2 /hpf (0-2); URINE UROBILINOGEN Negative (NEGATIVE)
[2021-08-16 22:17] VITALS: BP 142/69; PULSE 72; TEMP 98.9
[2021-08-17] VITALS (7 sets, daily range): BP systolic 110–156; BP diastolic 41–72; PULSE 69–84; TEMP 97.5–98.2
--- NOTE | 2021-08-17 06:07 | NUR ---
PATIENT RESTED IN BED THROUGHOUT THE NIGHT. PATIENT ABLE TO AMBULATE TO THE BED ON ADMISSION. PATIENT ORIENTED TO ROOM ON ADMISSION AND VERBALIZED UNDERSTANDING. PATIENT ABLE TO GET TO THE BEDSIDE COMMODE WITH SBA SEVERAL TIMES THROUGHOUT THE NIGHT. NO BM SINCE ADMISSION AND VOIDING WITHOUT DIFFICULTY. NO REQUESTS OR CONCERNS VERBALIZED BY PATIENT AT THIS TIME.
[2021-08-17 06:35] LABS: MEAN CELL VOLUME 85 fl (80.0-100.0); MEAN CORPUSCULAR HGB CONC 32 g/dl (33.0-37.0); PLATELET COUNT 213 K/mm3 (130-400); RED BLOOD COUNT 3.17 M/mm3 (4.10-5.30)
[2021-08-17 06:38] LABS: HEMATOCRIT 26.9 % (37.0-47.0); HEMOGLOBIN 8.5 g/dl (12.5-16.0); MEAN CORPUSCULAR HEMOGLOBIN 27 pg (27-31)
[2021-08-17 07:01] LABS: CREATININE, serum 0.67 mg/dL (0.57-1.11); POTASSIUM 3.7 mmol/L (3.5-4.5)
[2021-08-17 07:47] LABS: BAND 3 % (0-10); EOSINOPHIL 4 % (0-4); HYPOCHROMIA 1+; LYMPHOCYTE 19 % (20.0-51.0); NEUTROPHILS 56 % (42.0-75.2); OVALOCYTES 1+; PLATELET ESTIMATE NORMAL (NORMAL); TARGET CELLS 2+; TEAR DROP CELLS 1+
--- NOTE | 2021-08-17 09:40 | NUR ---
Initial visit; Patient thanked [employer] for looking in on her and offering God's blessings and keeping her in [employer]'s prayers.
--- NOTE | 2021-08-17 09:50 | NUR ---
Assessment completed, alert/oriented, vital signs stable, denies pain, reports feeling about the same but appears to be resting comfortable and in no distress at this time, lungs are diminished with some exp.wheezing noted in left lung, she remains on room air and O2 sats WNL, heart RRR/distal pulses are palpable, she is on IV abx and steroids, she has had breakfast and taken morning meds, denies other needs at this time, will continue to monitor
--- NOTE | 2021-08-17 15:10 | NUR ---
cardroom worker met with patient to discuss discharge plan. Patient currently lives in a townhouse here in [place]. Patient's grandson Justin ([phone]) lives in the townhouse behind her. She reports to being independent with her ADL's and does not utilize any DME to assist with ambulation. Patient has no home oxygen needs. Her PCP is Dr. Montero and she utilizes [facility] for medications. Patient does have a DPOA-HC established listing Justin as her primary agent and a copy can be found in her EMR. Spoke with the patient about PT/OT recommending going home with services. Patient verbalizes that she doesn't feel like she really needs it but is open to receiving their services and would like to be established to [facility] upon dc. Discharge plan: Home with [facility]
[2021-08-18 03:21] VITALS: BP 143/72; PULSE 81; TEMP 97.9
--- NOTE | 2021-08-18 05:41 | NUR ---
PATIENT REPORTED HAVING A DRY THROAT THIS MORNING. NEW ORDER FOR CARLSON'S THROAT LOZENGES. PATIENT REFUSED A.M. BLOOD SUGAR THIS MORNING. PATIENT STATED SHE KNOWS THE STEROID INCREASES HER BLOOD SUGAR. EDUCATED PATIENT ON THE IMPORTANCE OF MONITORING HER BLOOD SUGAR BUT PATIENT CONTINUED TO REFUSE. NO OTHER ISSUES NOTED OR REPORTED BY PATIENT THIS SHIFT.
[2021-08-18 07:08] VITALS: BP 112/45; PULSE 74; TEMP 98.1
[2021-08-18] MEDS ORDERED: LEVAQUIN 5500 MG/TA1 PO (10:38)
[2021-08-18] MEDS ORDERED: COLACE 100100 MG/CAP PO (10:39)
[2021-08-18] MEDS ORDERED: PROAIR HFA0.09 MG/AC IH (10:39)
[2021-08-18] MEDS ORDERED: TESSALON P100 MG/CAP PO (10:40)
[2021-08-18] MEDS ORDERED: PREDNISONE20 MG PO (10:41)
[2021-08-18] MEDS ORDERED: PROTONIX20 MG PO (10:46)
[2021-08-18 11:18] VITALS: BP 126/47; PULSE 73; TEMP 97.9
--- NOTE | 2021-08-18 11:26 | NUR ---
Table Hand was notified that patient is discharging home today. STARR contacted Sheryl at [facility] and faxed discharge orders. STARR met with patient who advised her grandson is taking her home today. Patient reports that [facility] and checks on her daily. Patient is interested in obtaining a k-pad so Hospitalist wrote patient a prescription but advised patient insurance may not cover this item. Patient plans to take the prescription to a DME provider. [facility]
--- NOTE | 2021-08-18 11:33 | NUR ---
PT ALERT AND ORIENTED THIS MORNING. DENIES PAIN, BUT REPORTS A SORE THROAT FROM COUGHING. COUGH DROP X1 ADMINISTERED THEN TESSALON DOMENICO X1 ADMINISTERED 2 HOURS LATER. VITAL SIGNS STABLE AND BLOOD SUGAR STABLE. SHIFT ASSESSMENT COMPLETED. NOT SOB WHILE SITTING. HAS A NONPRODUCTIVE COUGH THAT SOUNDS JUNKY, BUT NO SPUTUM. MEDICATIONS AMDINISTERED AND EDUCATION PROVIDED. PT REPORTED OUR DOSE OF SYNTHROID WAS INCORRECT, SPOKE WITH PHARMACY AND CORRECTED THE DOSE. PT REPORTS NO QUESTIONS AT THIS TIME. WILL CONTINUE TO MONITOR.
--- NOTE | 2021-08-18 15:50 | NUR ---
DE-ACCESSED PT'S PORT ON THE LEFT CHEST. ADMINISTERED HEPARIN FLUSH FIRST, REMOVED DRESSING, REMOVED ACCESS NEEDLE/TIP INTACT, CLEANED SITE, AND COVERED WITH A BANDAID. PROVIDED AND REVIEWED DISCHARGE INSTRUCTIONS WITH PT AND FAMILY MEMBER AT BEDSIDE. ANSWERED PT QUESTIONS AND REVIEWED UPCOMING APPOINTMENTS. PT GOT SELF DRESSED. I WHEELED PT OUT IN WHEELCHAIR TO CAR WITH FAMILY MEMBER AND DISCHARGED.
== END 2021-08-18 15:50 | disposition home or self-care (01) | DRG 190 ==
LOC: COL.ER 16:53 → MEDICAL 20:09
PROVIDERS: Family Medicine; Student in an Organized Health Care Education/Training Program; ADMIT Internal Medicine
DX: J44.1 Chronic obstructive pulmonary disease with (acute) exacerbation (principal); J18.9 Pneumonia, unspecified organism; C92.10 Chronic myeloid leukemia, BCR/ABL-positive, not having achieved remission; E44.0 Moderate protein-calorie malnutrition; J44.0 Chronic obstructive pulmonary disease with (acute) lower respiratory infection; I25.10 Atherosclerotic heart disease of native coronary artery without angina pectoris; E11.9 Type 2 diabetes mellitus without complications; E78.5 Hyperlipidemia, unspecified; J44.9 Chronic obstructive pulmonary disease, unspecified; E03.9 Hypothyroidism, unspecified; Z96.651 Presence of right artificial knee joint; Z79.82 Long term (current) use of aspirin; Z23 Encounter for immunization; Z20.822 Contact with and (suspected) exposure to COVID-19
CPT/HCPCS: 99223-AI; 99232-AI; 99239; A9284; J1956; J2405; J2920; J7030; J7120; J7512; Q9967

== ENCOUNTER 2021-12-14 10:23 | Inpatient (IN) | payer MEDICARE ==
[2021-12-14] VITALS (13 sets, daily range): BP systolic 94–405; BP diastolic 39–54; PULSE 22–77; TEMP 97.6–98.2
[~2021-12-14] VITALS: Ht 149.9 cm; Wt 45.6 kg
[~2021-12-14 10:23] MED LIST changes: +COLACE 100100 MG/CAP PO; +PROAIR HFA0.09 MG/AC IH; +PROTONIX20 MG PO; +TESSALON P100 MG/CAP PO
[2021-12-14 10:47] LABS: HEMOGLOBIN 11.1 g/dl (12.5-16.0); MEAN CELL VOLUME 87 fl (80.0-100.0); MEAN CORPUSCULAR HEMOGLOBIN 28 pg (27-31); MEAN CORPUSCULAR HGB CONC 32 g/dl (33.0-37.0); PLATELET COUNT 98 K/mm3 (130-400); RED BLOOD COUNT 4.03 M/mm3 (4.10-5.30); REDCELL DISTRIBUTION WIDTH-CV 15.8 % (11.5-14.5)
[2021-12-14 10:54] LABS: HEMATOCRIT 34.9 % (37.0-47.0)
[2021-12-14 11:03] LABS: ALBUMIN 3.5 gm/dL (3.4-4.8); ALKALINE PHOSPHATASE 62 U/L (40-150); ANION GAP 11 mmol/L (7-16); AST,SGOT 10 U/L (5-34); BILIRUBIN,TOTAL 0.7 mg/dL (0.2-1.2); BLOOD UREA NITROGEN 14 mg/dL (10-20); CALCIUM 8.8 mg/dL (8.4-10.2); CARBON DIOXIDE 23 mmol/L (23-31); CHLORIDE 104 mmol/L (98-107); CREATININE, serum 0.77 mg/dL (0.57-1.11); GLUCOSE 167 mg/dL (70-99); POTASSIUM 3.5 mmol/L (3.5-4.5); SODIUM 138 mmol/L (136-145); TOTAL PROTEIN 5.6 gm/dL (6.2-8.1)
[2021-12-14 11:05] LABS: ALANINE AMINOTRANSFERASE < 6 U/L (0-55)
[2021-12-14 11:12] LABS: TROPONIN-I 0.122 ng/mL (0.00-0.033)
[2021-12-14 11:31] LABS: BAND 5 % (0-10); BASOPHIL 1 % (0-2); EOSINOPHIL 2 % (0-4); HYPOCHROMIA 1+; LYMPHOCYTE 15 % (20.0-51.0); METAMYELOCYTE 3 % (0-0); NEUTROPHILS 38 % (42.0-75.2); PLATELET ESTIMATE DECREASED (NORMAL)
[2021-12-14 14:20] LABS: INR 1.4 (0.8-3.0); PROTHROMBIN TIME 16.2 SECONDS (9.7-12.8)
[2021-12-14 14:23] LABS: PARTIAL THROMBOPLASTIN TIME 41.8 SECONDS (26.0-37.0)
--- NOTE | 2021-12-14 15:08 | NUR ---
Patiente came to the unit by bed, alert and oriented x 4, VSS. Complains of chest pain but nothing compared with before. rated 6/10. Heparin drig at 5.5 ml/hr. Assessment intake completed.
[2021-12-14] MEDS ORDERED: EUTHYROX25 MCG PO (15:16)
--- NOTE | 2021-12-14 15:43 | NUR ---
Patient states she attends [facility] with Hubert Randhawa MD. [phone] and her next session is scheduled for next monday12/20/21.
--- NOTE | 2021-12-14 15:58 | NUR ---
Notified by care team that the patient received chemotherapy through Dr. Randhawa's office. Verified with the office that the patient received decitabine on 11/26. Verified with pharmacy that staff do NOT need to follow any special precautions for this patient. Notified care team.
--- NOTE | 2021-12-14 17:04 | NUR ---
Patient blood glucose was 57, a dose of glucose [address] Ugalde and Jonathan Cotton. Pt was picked up for procedure. She will get another dose downstairs since BG is in 60's.
--- NOTE | 2021-12-14 17:38 | NUR ---
See merge for all medication, assessment, intervention, and vital sign times.
--- NOTE | 2021-12-14 18:03 | NUR ---
Patient came back to the room by bed, alert and oriented. Access covered with gauze and clear dressing. Clean, dry, intact. Right now in bed with family at the bedside. VSS post op started.
--- NOTE | 2021-12-14 18:39 | NUR ---
Pt continues lying flat in bed, BP soft, HEP gtt restarted at same rate according to protocol. Incition site clean, dry, intact. Report will be given to night RN.
[2021-12-15 04:20] VITALS: BP 97/40; PULSE 69; TEMP 98.3
[2021-12-15 07:20] LABS: MEAN CELL VOLUME 88 fl (80.0-100.0); MEAN CORPUSCULAR HGB CONC 31 g/dl (33.0-37.0); PLATELET COUNT 92 K/mm3 (130-400); RED BLOOD COUNT 3.47 M/mm3 (4.10-5.30); REDCELL DISTRIBUTION WIDTH-CV 15.8 % (11.5-14.5)
[2021-12-15 07:25] LABS: HEMATOCRIT 30.4 % (37.0-47.0); HEMOGLOBIN 9.5 g/dl (12.5-16.0); MEAN CORPUSCULAR HEMOGLOBIN 27 pg (27-31)
--- NOTE | 2021-12-15 07:29 | NUR ---
PORTACATH IN LEFT CHEST ACCESSED USING 0.75 IN ELDRIDGE NEEDLE AND ASEPTIC TECHNIQUE, NO BLOOD RETURN OBTAINED, PT STATES THEY HAVEN'T BEEN GETTING BLOOD RETURN FOR AWHILE BUT SHE'S HAD IT SCANNED AND IT'S OK TO USE, FLUSHED W/O DIFFICULTY.
[2021-12-15 07:39] LABS: CALCIUM 8.4 mg/dL (8.4-10.2); CREATININE, serum 0.66 mg/dL (0.57-1.11); POTASSIUM 4.3 mmol/L (3.5-4.5)
[2021-12-15 08:00] VITALS: BP 101/50; PULSE 71; TEMP 98.3
[2021-12-15 08:17] LABS: BAND 5 % (0-10); BASOPHIL 2 % (0-2); LYMPHOCYTE 20 % (20.0-51.0); MYELOCYTE 1 % (0-0); NEUTROPHILS 54 % (42.0-75.2); PLATELET ESTIMATE DECREASED (NORMAL)
[2021-12-15 08:19] LABS: HYPOCHROMIA 1+
[2021-12-15 08:20] LABS: SPHEROCYTE 1+
[2021-12-15] MEDS ORDERED: PLAVIX 75MG TAB75 MG PO (08:26)
[2021-12-15] MEDS ORDERED: NITROSTAT0.4 MG/TAB SL (08:55)
--- NOTE | 2021-12-15 09:00 | NUR ---
Patient is resting in bed, alert and oriented x 4, VSS, soft BP. Continue receiving NS with potassium. Pt states she has nausea and she is not tolerateing food. Telemetry in place, NSR. Assessment completed, meds hold waiting for nausea to calm down. IV dressing changed. No other needs at this time. Call light within reach.
[2021-12-15] MEDS ORDERED: ZOFRAN ODT4 MG PO (09:47)
--- NOTE | 2021-12-15 10:16 | NUR ---
Initial visit; "Jose De Jesus" thanked Shoulder Boner for looking in on her and offering God's blessings, prayer and to keep her in Shoulder Boner's prayers. Patient states she will likely be discharged today. Shoulder Boner wished her well.
--- NOTE | 2021-12-15 10:43 | NUR ---
fabric worker leader met with patient to complete intake and discuss discharge plan. Patient is being discharged today. Patient states that she lives at home in [place] with her 14yr old grandson. She states her oldest grandson Justin ([phone]) lives in the [facility] right behind her. Patient states that she is independent with her ADL's and does not utilize any DME to assist with mobility. Patient has no home oxygen needs. PCP is Dr. Montero and she utilizes [facility]) for prescriptions. Patient reports that she does have a DPOA-HC established listing Justin as her agent. Patient is planning on returning home with no concerns. Discharge plan: Home
[2021-12-15 12:00] VITALS: BP 93/41; PULSE 76
--- NOTE | 2021-12-15 16:30 | NUR ---
Patient and family was provided with discharge information, IV access and telemetry discontinued. All questions answered. Patient left room with grandson and staff via wheelchair.
--- NOTE | 2021-12-15 17:58 | NUR ---
Karuna cath access was discontinued too.
[2022-01-10] MEDS ORDERED: PLAVIX 75MG TAB75 MG PO (07:49)
== END 2021-12-15 18:02 | disposition home or self-care (01) | DRG 281 ==
LOC: COL.ER 10:23 → MEDICAL 13:52
PROVIDERS: Personal Emergency Response Attendant; Student in an Organized Health Care Education/Training Program; ADMIT Student in an Organized Health Care Education/Training Program
PROC: 4A023N7 Measurement of Cardiac Sampling and Pressure, Left Heart, Percutaneous Approach (ICD-10-PCS; principal; 2021-12-14)
PROC: B2111ZZ Fluoroscopy of Multiple Coronary Arteries using Low Osmolar Contrast (ICD-10-PCS; 2021-12-14)
DX: T82.855A Stenosis of coronary artery stent, initial encounter (principal); I21.4 Non-ST elevation (NSTEMI) myocardial infarction; C92.10 Chronic myeloid leukemia, BCR/ABL-positive, not having achieved remission; I25.10 Atherosclerotic heart disease of native coronary artery without angina pectoris; J44.9 Chronic obstructive pulmonary disease, unspecified; Z66 Do not resuscitate; Z96.651 Presence of right artificial knee joint; I10 Essential (primary) hypertension; E78.5 Hyperlipidemia, unspecified; I44.30 Unspecified atrioventricular block; I70.8 Atherosclerosis of other arteries; E03.9 Hypothyroidism, unspecified; E11.649 Type 2 diabetes mellitus with hypoglycemia without coma; G89.29 Other chronic pain; Y83.8 Other surgical procedures as the cause of abnormal reaction of the patient, or of later complication, without mention of misadventure at the time of the procedure; M54.9 Dorsalgia, unspecified; Z88.0 Allergy status to penicillin; Z88.2 Allergy status to sulfonamides; Z85.41 Personal history of malignant neoplasm of cervix uteri; Z95.5 Presence of coronary angioplasty implant and graft; Z79.82 Long term (current) use of aspirin; Z90.710 Acquired absence of both cervix and uterus; Z88.7 Allergy status to serum and vaccine; Z88.8 Allergy status to other drugs, medicaments and biological substances; Z88.1 Allergy status to other antibiotic agents; Z91.041 Radiographic dye allergy status; Z87.891 Personal history of nicotine dependence; Z79.890 Hormone replacement therapy; Z23 Encounter for immunization; Y92.89 Other specified places as the place of occurrence of the external cause
CPT/HCPCS: C1760; C1769; C1894; J1644; J2250; J2270; J2405; J3010; J3480

== ENCOUNTER 2022-04-10 14:33 | Emergency (ER) | payer MEDICARE ==
[~2022-04-10] VITALS: Ht 149.9 cm; Wt 48.6 kg
[~2022-04-10 14:33] MED LIST changes: +EUTHYROX25 MCG PO
[2022-04-10 14:41] VITALS: BP 126/53; PULSE 68; TEMP 98.1
== END 2022-04-10 17:36 | disposition home or self-care (01) ==
LOC: COL.ER 14:33
DX: S09.90XA Unspecified injury of head, initial encounter (principal); S42.002A Fracture of unspecified part of left clavicle, initial encounter for closed fracture; S00.03XA Contusion of scalp, initial encounter; S30.810A Abrasion of lower back and pelvis, initial encounter; M25.552 Pain in left hip; I25.10 Atherosclerotic heart disease of native coronary artery without angina pectoris; Z95.5 Presence of coronary angioplasty implant and graft; Z28.310 Unvaccinated for COVID-19; Z79.02 Long term (current) use of antithrombotics/antiplatelets; W10.8XXA Fall (on) (from) other stairs and steps, initial encounter
CPT/HCPCS: J3010

== ENCOUNTER → 2022-06-28 | Outpatient (CLI) | payer MEDICARE | LOC: COL.RAD 12:51 | DX: D72.829 Elevated white blood cell count, unspecified (principal); R16.1 Splenomegaly, not elsewhere classified | CPT/HCPCS: Q9967 ==

== ENCOUNTER 2022-07-29 13:00 | Outpatient (RCR) | payer MEDICARE ==
[2022-07-29] VITALS (9 sets, daily range): BP systolic 113–132; BP diastolic 46–67; PULSE 67–71; TEMP 9.6
--- NOTE | 2022-07-29 17:40 | NUR ---
Pt tolerated her blood transfusions with no problem. She is up and amb with steady gait at time of departure. I did transport her to exit via wheelchair, wrapped in a blanket, at time of her departure. Her grandson is here to take her home
== END 2022-07-29 15:50 | disposition home or self-care (01) ==
LOC: EUO 13:00
DX: D72.829 Elevated white blood cell count, unspecified (principal)
CPT/HCPCS: J1644; J7050; P9040

== ENCOUNTER 2022-08-01 10:29 | Emergency (ER) | payer MEDICARE ==
[~2022-08-01] VITALS: Ht 149.9 cm; Wt 45.5 kg
[2022-08-01 11:13] LABS: MEAN CELL VOLUME 94 fl (80.0-100.0); MEAN CORPUSCULAR HEMOGLOBIN 31 pg (27-31); MEAN CORPUSCULAR HGB CONC 33 g/dl (33.0-37.0); MEAN PLATELET VOLUME 11.5 fl (7.4-10.4); RED BLOOD COUNT 3.86 M/mm3 (4.10-5.30); REDCELL DISTRIBUTION WIDTH-CV 18.9 % (11.5-14.5)
[2022-08-01 11:16] LABS: HEMATOCRIT 36.3 % (37.0-47.0); PLATELET COUNT 44 K/mm3 (130-400)
[2022-08-01 11:39] LABS: ALBUMIN 3.2 gm/dL (3.4-4.8); ALKALINE PHOSPHATASE 58 U/L (40-150); ANION GAP 9 mmol/L (7-16); AST,SGOT 5 U/L (5-34); BLOOD UREA NITROGEN 18 mg/dL (10-20); CALCIUM 8.8 mg/dL (8.4-10.2); CARBON DIOXIDE 23 mmol/L (23-31); CHLORIDE 104 mmol/L (98-107); CREATINE KINASE 7 U/L (29-168); CREATININE, serum 0.89 mg/dL (0.57-1.11); GLUCOSE 94 mg/dL (70-99); POTASSIUM 3.7 mmol/L (3.5-4.5); SODIUM 136 mmol/L (136-145); TOTAL PROTEIN 5.6 gm/dL (6.2-8.1)
[2022-08-01 11:48] LABS: TROPONIN-I < 0.010 ng/mL (0.00-0.033)
[2022-08-01 11:50] LABS: ANISOCYTOSIS 2+; BAND 1 % (0-10); BURR CELLS 1+; LYMPHOCYTE 16 % (20.0-51.0); NEUTROPHILS 51 % (42.0-75.2); PLATELET ESTIMATE DECREASED (NORMAL); SCHISTOCYTES 1+; STOMATOCYTE 1+
[2022-08-01 11:59] LABS: ALANINE AMINOTRANSFERASE < 6 U/L (0-55); BILIRUBIN,TOTAL 0.6 mg/dL (0.2-1.2)
[2022-08-01] MEDS ORDERED: DOXYCYCLINE 10100 MG PO (12:37)
[2022-08-01 13:06] VITALS: BP 148/73; PULSE 80; TEMP 98.7
[2022-08-02 08:13] LABS: PATHOLOGY DIFF REVIEW OK
== END 2022-08-01 13:08 | disposition home or self-care (01) ==
LOC: COL.ER 10:29
PROVIDERS: Emergency Medicine
DX: U07.1 COVID-19 (principal); C92.10 Chronic myeloid leukemia, BCR/ABL-positive, not having achieved remission; Z88.1 Allergy status to other antibiotic agents; Z95.5 Presence of coronary angioplasty implant and graft

== ENCOUNTER 2022-08-17 10:15 | Outpatient (RCR) | payer MEDICARE ==
[~2022-08-17] VITALS: Ht 149.9 cm; Wt 45.0 kg
[2022-08-17 12:23] VITALS: BP 109/46; PULSE 62; TEMP 97.8
[2022-08-17 12:40] VITALS: BP 112/58; PULSE 59; TEMP 97.9
[2022-08-17 12:55] VITALS: BP 116/55; PULSE 60; TEMP 97.7
[2022-08-17 13:15] VITALS: BP 112/53; PULSE 58; TEMP 98.1
[2022-08-17 13:49] VITALS: BP 106/53; PULSE 63; TEMP 98.2
--- NOTE | 2022-08-17 14:06 | NUR ---
infusion completed, port flushed and secure for office tomorrow, grandson here to take pt via w/c home
== END 2022-08-17 16:26 ==
LOC: EUO 10:15
DX: R11.2 Nausea with vomiting, unspecified (principal)
CPT/HCPCS: J1644; J7050; P9035

== ENCOUNTER 2022-08-25 10:28 | Outpatient (RCR) | payer MEDICARE ==
[2022-08-25] VITALS (10 sets, daily range): BP systolic 86–125; BP diastolic 36–55; PULSE 57–75; TEMP 97–98.7
[~2022-08-25] VITALS: Ht 149.9 cm; Wt 46.0 kg
--- NOTE | 2022-08-25 17:34 | NUR ---
PT DISCHARGED AT APPROX 1730. SHE WAS WHEELED TO THE ER DOORS VIA WHEELCHAIR TO MEET HER GRANDSON WHO WAS GIVING HER A RIDE. SHE TOELRATED PO FLUIDS AND FOODS THRUOUT THE BLOOD TRANSFUSION AND WAS FREE OF CONCERNS AND COMPLAINTS AT TIME OF DISCHARGE. HER VS REMAINED WNL FOR THE DURATION OF HER TRANSFUSION. SHE WAS ABLE TO AMBULATE FOR SMALL DISTANCES BEFORE AND AFTER THE TRANSFUSIONS. SHE DID NOT REPORT ANY SIGNS OF HEMOYLTIC REACTION DURING OR AFTER TRANSFUSION.
== END 2022-08-25 17:30 | disposition home or self-care (01) ==
LOC: EUO 10:28
DX: D72.829 Elevated white blood cell count, unspecified (principal)
CPT/HCPCS: J1644; J7050; P9040

== ENCOUNTER 2022-09-01 08:00 | Outpatient (RCR) | payer MEDICARE ==
[~2022-09-01] VITALS: Ht 149.9 cm; Wt 46.0 kg
[2022-09-01 08:39] VITALS: BP 131/63; PULSE 71; TEMP 97.5
[2022-09-01 09:07] VITALS: BP 120/70; PULSE 53; TEMP 97.5
[2022-09-01 09:16] VITALS: BP 112/59; PULSE 58; TEMP 97.6
[2022-09-01 09:22] VITALS: BP 108/97; PULSE 56; TEMP 97.5
[2022-09-01 09:52] VITALS: BP 150/68; PULSE 56; TEMP 97.7
[2022-09-01 11:01] VITALS: BP 138/55; PULSE 56; TEMP 97.4
--- NOTE | 2022-09-01 11:02 | NUR ---
PT PORT DEACCESSED- VITALS TAKEN. PT FEELS GOOD. SON CALLED TO MEET AT ENTRANCE
== END 2022-09-01 11:21 | disposition home or self-care (01) ==
LOC: EUO 08:00
DX: Z45.2 Encounter for adjustment and management of vascular access device (principal); D72.829 Elevated white blood cell count, unspecified
CPT/HCPCS: J7050; P9035